=== PATIENT | male | born 1965 | race African-American/Black ===

== ENCOUNTER → 2024-09-13 | Day surgery (SDC) | payer BC ==
[~2024-09-13] MED LIST: FENTANYL CITRATE/PF 100MCG/2 ML INJ ONE; GLUCAGON FOR INJ 1 MG VIAL ONE; MIDAZOLAM HCL 2 MG/2 ML VIAL ONE; PROPOFOL IV EMULSION 10 MG/ML 20 ML VIAL ONE
[2024-09-13] MEDS: LACTATED RINGER'S 1,000 ML BAG IV ONE (13:40)
[2024-09-13 14:57] VITALS: TEMP 97.8
[2024-09-13 15:30] VITALS: BP 133/81; PULSE 71; RESP 16; O2SAT 100
== END | disposition home or self-care (01) ==
LOC: OR 11:07
PROVIDERS: ATTEND Internal Medicine Gastroenterology
DX: Z12.11 Encounter for screening for malignant neoplasm of colon (principal); K57.90 Diverticulosis of intestine, part unspecified, without perforation or abscess without bleeding; K64.8 Other hemorrhoids; D12.2 Benign neoplasm of ascending colon
CPT/HCPCS: 45385; J1610; J2250; J2704; J3010; J7121